=== PATIENT | female | born 1930 | race Caucasian/White ===

== ENCOUNTER → 2016-03-20 | Outpatient (CLI) | payer MEDICARE, BC ==
[~2016-03-20] MED LIST: ALPR-138 PO; ALPR.25 PO; AMBI10TA PO; ASPI1TAB69 PO; ASPI81TA82 PO; DOXE50CA3 PO; FEXO15TA PO; HYDR-3533 PO; LEVO50TA4 PO; MAXZ25 PO; PREM.625 PO; PREM0.622 PO; PROP60CA PO; PROP80CA PO; TRIA37.5 PO; VITA2000 PO; ZOFR4TAB3 SL; ZOLP10TA3 PO
[2016-03-20 11:03] LABS: HEMATOCRIT 37.6 % (35.0-46.0); MEAN CELL VOLUME 85.9 FL (80.0-100.0); MEAN CORPUSCULAR HEMOGLOBIN 29.2 PG (27.0-34.0); PLATELET COUNT 257 TH/MM3 (150-450); RED BLOOD COUNT 4.38 MIL/MM3 (4.00-5.30); RED CELL DISTRIBUTION WIDTH 13.8 % (11.6-17.2); REVIEW FLAG FINAL; WHITE BLOOD COUNT 4.7 TH/MM3 (4.0-11.0)
[2016-03-20 11:29] LABS: ANION GAP 7 MEQ/L (5-15); AST (GOT) 15 U/L (15-37); BICARBONATE 27.9 MEQ/L (21.0-32.0); BLOOD UREA NITROGEN 11 MG/DL (7-18); CHLORIDE 99 MEQ/L (98-107); GLOMERULAR FILTRATION RATE 64 ML/MIN (>89); GLUCOSE,FASTING 86 MG/DL (74-99); POTASSIUM 4.2 MEQ/L (3.5-5.1); SODIUM (NA) 134 MEQ/L (136-145)
[2016-03-20 11:39] LABS: ALKALINE PHOSPHATASE 103 U/L (45-117); ALT (GPT) 19 U/L (10-53); TOTAL BILIRUBIN ADULT 0.3 MG/DL (0.2-1.0)
== END ==
LOC: PLAB 08:18
PROVIDERS: ATTEND Family Medicine
DX: I10 Essential (primary) hypertension (principal); E03.8 Other specified hypothyroidism; E89.89 Other postprocedural endocrine and metabolic complications and disorders; Z51.81 Encounter for therapeutic drug level monitoring
CPT/HCPCS: 36415; 80053; 84443; 85027

== ENCOUNTER 2016-04-02 20:10 | Emergency (ER) | payer MEDICARE, BC ==
[~2016-04-02] VITALS: Ht 160 cm; Wt 64.8 kg
[~2016-04-02 20:10] MED LIST changes: -ALPR.25 PO; -AMBI10TA PO; -ASPI1TAB69 PO; -FEXO15TA PO; -HYDR-3533 PO; -PREM.625 PO; -PROP60CA PO; -TRIA37.5 PO; -VITA2000 PO; -ZOFR4TAB3 SL
[2016-04-02 20:21] VITALS: BP 145/81; PULSE 76; RESP 18; TEMP 97.6; O2SAT 98
[2016-04-02] MEDS ORDERED: ASPI1TAB69 PO (21:01)
[2016-04-02] MEDS ORDERED: FEXO15TA PO (21:01)
[2016-04-02] MEDS ORDERED: LEVO50TA4 PO (21:01)
[2016-04-02] MEDS ORDERED: PREM.625 PO (21:01)
[2016-04-02] MEDS ORDERED: DOXE50CA3 PO (21:01)
[2016-04-02] MEDS ORDERED: PROP60CA PO (21:01)
[2016-04-02] MEDS ORDERED: AMBI10TA PO (21:01)
[2016-04-02] MEDS ORDERED: TRIA37.5 PO (21:01)
[2016-04-02] MEDS ORDERED: ALPR.25 PO (21:01)
[2016-04-02] MEDS ORDERED: VITA2000 PO (21:01)
--- NOTE | 2016-04-02 21:54 | RADHPO ---
EXAM DATE/TIME: 04/02/2016 21:09 [facility] COMPARISON: No previous studies available for comparison. INDICATIONS : Patient states she fell tonight, pain. MEDICAL HISTORY : None. SURGICAL HISTORY : None. ENCOUNTER: Initial ACUITY: 1 day PAIN SCORE: 7/10 LOCATION: Left Shoulder FINDINGS: Left glenohumeral joint is anteriorly dislocated. Probably some flattening of the posterolateral aspe ct of the humeral head. No displaced fracture seen. 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 CONCLUSION: Anterior dislocation of the glenohumeral joint and a probable shallow Hill-Sachs lesion. No displaced fracture seen. Favio Schuster MD on April 02, 2016 at 21:52 Board Certified Radiologist. This report was verified electronically.
--- NOTE | 2016-04-02 22:16 | PD ---
HPI Chief Complaint: Fall Time Seen by Provider: 22:16 Travel History International Travel<30 days: No Contact w/Intl Traveler<30days: No Traveled to known affect area: No History of Present Illness HPI 86-year-old female presents to the emergency department for evaluation of left shoulder pain status post a non-syncopal trip and fall. Patient was out in the garage and had a trip and fall injuring her left shoulder. Patient denies any left upper extremity numbness tingling or weakness but arredondo significant pain with attempted movement. No previous injury to the left shoulder. Has had previous injury to the right shoulder with a rotator cuff injury. Patient states she did hit her chin and does complain of some neck pain denies any loss of consciousness however. Patient does take aspirin daily but takes no other blood thinning agents. Patient denies any chest pain rib pain abdominal pain pelvic pain back pain or other extremity injury or pain. Patient denies any lower extremity pain or injury. Patient has ice pack to the left shoulder. Patient rates pain 10 over 10 in intensity. Applying ice are remaining still provided some relief attempted movement worsens symptoms. Takes aspirin daily as only blood thinning agent. PFSH Past Medical History Narrative Medical Anxiety hypertension right rotator cuff injury cholecystectomy herniorrhaphy hysterectomy Blood Disorders: No Anxiety: Yes Cancer: No Cardiovascular Problems: No Diabetes: No Endocrine: No Genitourinary: No Hepatitis: No Hiatal Hernia: No Hypertension: Yes Immune Disorder: No Musculoskeletal: Yes (BACK PAIN HX - ARTHRITIS) Neurologic: Yes Psychiatric: Yes (ANXIETY) Reproductive: No Respiratory: No Thyroid Disease: Yes Tetanus Vaccination: < 5 Years Influenza Vaccination: Yes Past Surgical History Abdominal Surgery: Yes (ROSS, HERNIA REPAIRS X2) AICD: No Body Medical Devices: EYES Eye Surgery: Yes (ALEXIA CATARACT SX) Gynecologic Surgery: Yes (HYSTERECTOMY ) Hysterectomy: Yes Joint Replacement: No Oral Surgery: Yes (T&A) Pacemaker: No Other Surgery: Yes (hysterectomy, gall bladder, hernia repair) Social History Alcohol Use: No Tobacco Use: No Substance Use: No Allergies-Medications (Allergen,Severity, Reaction): Coded Allergies: [place] (Unverified Allergy, Mild, HIVES, 04/02/16) [place] (Unverified Adverse Reaction, Mild, HIVES, 04/02/16) Tomato (Unverified Adverse Reaction, Mild, HIVES, 04/02/16) Reported Meds & Prescriptions Reported Meds & Active Scripts Active Zofran Odt (Ondansetron Odt) 4 Mg Tab 4 Mg SL Q6HR PRN Lortab (Hydrocodone-Acetaminophen) 5-325 Mg Tab 0.5-1 Tab PO Q6H PRN Reported Vitamin D3 (Cholecalciferol) 2,000 Unit Cap 2,000 Units PO DAILY Ambien (Zolpidem Tartrate) 10 Mg Tab 10 Mg PO HS PRN Propranolol ER 24 HR (Propranolol HCl) 60 Mg Cap 50 Mg PO DAILY Doxepin (Doxepin HCl) 50 Mg Cap 50 Mg PO HS Aspirin 81 Mg Tabdr 81 Mg PO DAILY Fabienne Allergy (Fexofenadine HCl) 180 Mg Tab 180 Mg PO DAILY Xanax (Alprazolam) 0.25 Mg Tab 0.25 Mg PO Q8H PRN Prempro Blister Pack (Estrogens Conj/Medroxyprogest Acet) 0.625-2.5 Mg Tab 1 Tab PO EVERY OTHER DAY Triamterene-Hydrochlorothiazide 37.5-25 Mg Tab 1 Tab PO DAILY Levothyroxine (Levothyroxine Sodium) 50 Mcg Tab 50 Mcg PO DAILY Review of Systems Except as stated in HPI: all other systems reviewed are Neg General / Constitutional: No: Fever, Chills Eyes: No: Visual changes HENT: Positive: Neck Pain, No: Headaches Cardiovascular: No: Chest Pain or Discomfort, Syncope Respiratory: No: Shortness of Breath, Pleuritic Pain Gastrointestinal: No: Nausea, Vomiting, Abdominal Pain Genitourinary: No: Flank Pain Musculoskeletal: Positive: Limited ROM, Pain (left shoulder) Skin: No Rash Neurologic: No: Weakness, Headache, Change in Mentation, Slurred Speech Psychiatric: No: Anxiety Endocrine: No: Heat Intolerance Hematologic/Lymphatic: No: Easy Bruising Physical Exam Narrative GENERAL: Well-developed well-nourished female in no respiratory distress obvious discomfort holding her left upper extremity without obvious step-off deformity. GCS 15. SKIN: Warm and dry. HEAD: Atraumatic. Normocephalic. EYES: Pupils equal and round. No scleral icterus. No injection or drainage. ENT: No nasal bleeding or discharge. Mucous membranes pink and moist. NECK: Trachea midline. No JVD. Mild tenderness to direct palpation along the left side of the posterior neck no bony step-off no midline tenderness to direct palpation along the cervical spine. CARDIOVASCULAR: Regular rate and rhythm. RESPIRATORY: No accessory muscle use. Clear to auscultation. Breath sounds equal bilaterally. GASTROINTESTINAL: Abdomen soft, non-tender, nondistended. Hepatic and splenic margins not palpable. MUSCULOSKELETAL: Extremities without clubbing, cyanosis, or edema. Obvious deformity of the left shoulder with step-off noticed that the glenohumeral location distally extremity is neurovascular tendon intact with brisk capillary refill of each digit and thumb apposition in place wrist flexion extension of place sensory exam intact radial pulse 2+ to palpation. NEUROLOGICAL: Awake and alert. No obvious cranial nerve deficits. Motor grossly within normal limits. Five out of 5 muscle strength in the arms and legs. Normal speech. PSYCHIATRIC: Appropriate mood and affect; insight and judgment normal. Data Data Last Documented VS Vital Signs Date Time Temp Pulse Resp B/P Pulse Ox O2 Delivery O2 Flow Rate FiO2 04/03/16 00:55 82 18 129/58 99 04/03/16 00:50 Room Air 04/02/16 23:51 2 04/02/16 20:21 97.6 Orders Shoulder, Complete (>2vws) (04/02/16 20:24) Ice/Cold Pack (04/02/16 20:24) Propofol 200 Mg/20 Ml Inj (Diprivan 200 (04/02/16 22:30) Ct Brain W/O Iv Contrast(Rout) (04/02/16 ) Ct Cerv Spine W/O Contrast (04/02/16 ) Ondansetron Inj (Zofran Inj) (04/02/16 22:30) Morphine Inj (Morphine Inj) (04/02/16 22:30) Ice/Cold Pack (04/02/16 22:22) Support Splint (04/02/16 22:22) Shoulder, Limited(2vws) (04/02/16 ) Sling Cradle Arm (04/02/16 ) MDM Medical Decision Making Medical Screen Exam Complete: Yes Emergency Medical Condition: Yes Medical Record Reviewed: Yes Interpretation(s) Last Impressions Shoulder X-Ray 04/02/162023 Signed Impressions: Service Date/Time: Saturday, April 02, 2016 21:09 - CONCLUSION: Anterior dislocation of the glenohumeral joint and a probable shallow Hill-Sachs lesion. No displaced fracture seen. Favio Schuster MD Shoulder X-Ray 04/02/16 0000 Signed Impressions: Service Date/Time: Saturday, April 02, 2016 23:40 - CONCLUSION: Successful reduction. Favio Small MD Head CT 04/02/16 0000 Signed Impressions: Service Date/Time: Saturday, April 02, 2016 22:41 - CONCLUSION: 1. No acute abnormality. 2. Age-related atrophy. 3. Suspect small vessel ischemic change in the white matter. Favio Small MD Cervical Spine CT 04/02/16 0000 Signed Impressions: Service Date/Time: Saturday, April 02, 2016 22:41 - CONCLUSION: 1. No fracture or acute malalignment of the cervical spine. 2. Multilevel degenerative changes as above. 3. Large nodule of the right lobe of the thyroid. Outpatient thyroid ultrasound recommended. Faivo Schuster MD Differential Diagnosis Dislocation, subluxation, fracture Narrative Course Patient presents with dislocation of the left shoulder distally extremity is neurovascular tendon intact; complaint of fall with hitting her chin and complains of left-sided neck pain; CT brain noncontrast CT cervical spine noncontrast that imaging of the left shoulder imaging studies ordered Patient was administered Zofran 4 mg IV and morphine sulfate 2 mg IV Left shoulder shows dislocation of the left shoulder the glenohumeral joint with Hill-Sachs deformity noted CT brain and CT cervical spine revealed no acute abnormality After successful clinical reduction of the dislocation imaging studies study was consistent with successful reduction; patient stable for outpatient management. Procedures Procedure Narrative After written and verbal informed consent and following successful procedural sedation with propofol provided by colleague Patient was placed in optimum supine position and with humerus at the patient's side and abduction gentle external rotation was performed however initially had reduction of the dislocation but this slipped out very readily and then with gentle over the head range of motion humeral head popped into glenoid fossa and remain in good position. Patient was readily awakened and was able to perform director of student life 5 over 5 motor strength with brisk capillary refill less than 2 seconds per digit thumb apposition intact wrist flexion and extension intact history exam intact. Patient kept in sling and swath to maintain reduction. Postreduction film performed. Diagnosis Primary Impression: Anterior shoulder dislocation Qualified Code: S43.015A - Anterior shoulder dislocation, left, initial encounter Additional Impression: Cervical strain, acute Qualified Code: S16.1XXA - Cervical strain, acute, initial encounter Referrals: Orthopedist call for appointment Patient Instructions: Narcotic given in the ED, General Instructions Additional Instructions: Call orthopedist in a.m. to schedule follow-up appointment Wear sling and swath Apply ice pack intermittently for first 12-24 hours Take pain medication as prescribed as needed Return to the emergency department for any concerns or change in condition Med/Other Pt SpecificInfo: Prescription(s) given Scripts Ondansetron Odt (Zofran Odt)4 Mg Tab4 Mg SL Q6HR PRN (Nausea/Vomiting) #10 TAB Ref 0 Prov:Alexia aFulkner MD 04/03/16 Hydrocodone-Acetaminophen (Lortab)5-325 Mg Tab0.5-1 Tab PO Q6H PRN (PAIN) #12 TAB Ref 0 Prov:Alexia Faulkner MD 04/03/16 Disposition: 01 DISCHARGE HOME Condition: Stable Alexia Faulkner MD Apr 02, 2016 22:16
[2016-04-02] MEDS ORDERED: MORPHINE SULFATE 4 MG/ML INJ IV PUSH ONE (22:30)
[2016-04-02] MEDS ORDERED: PROPOFOL 200 MG/20 ML AMP IV ONE (22:30)
[2016-04-02] MEDS ORDERED: ONDANSETRON HCL 4 MG/2 ML VIAL IV PUSH ONE (22:30)
[2016-04-02 23:00] VITALS: BP 147/67; PULSE 81; RESP 20; O2SAT 100
--- NOTE | 2016-04-02 23:10 | RADHPO ---
EXAM DATE/TIME: 04/02/2016 22:41 [facility] COMPARISON: No previous studies available for comparison. INDICATIONS : Fall, cephalgia. RADIATION DOSE: 61.25 CTDIvol (mGy) MEDICAL HISTORY : Hypertension. SURGICAL HISTORY : None. ENCOUNTER: Initial ACUITY: 1 day PAIN SCALE: 4/10 LOCATION: cranial TECHNIQUE: Multiple contiguous axial images were obtained of the head. Using automated exposure control and adj ustment of the mA and/or kV according to patient size, radiation dose was kept as low as reasonably a chievable to obtain optimal diagnostic quality images. FINDINGS: CEREBRUM: The ventricles and cortical sulci are widened. There is decreased density in the periventricular whit e matter especially posteriorly. No evidence of midline shift, mass lesion, hemorrhage or acute infa rction. No extra-axial fluid collections are seen. POSTERIOR FOSSA: The cerebellum and brainstem are intact. The 4th ventricle is midline. The cerebellopontine angle i s unremarkable. EXTRACRANIAL: The visualized portion of the orbits is intact. SKULL: The calvaria is intact. No evidence of skull fracture. CONCLUSION: 1. No acute abnormality. 2. Age-related atrophy. 3. Suspect small vessel ischemic change in the white matter. Favio Smlal MD on April 02, 2016 at 23:05 Board Certified Radiologist. This report was verified electronically.
--- NOTE | 2016-04-02 23:14 | RADHPO ---
EXAM DATE/TIME: 04/02/2016 22:41 [facility] COMPARISON: No previous studies available for comparison. INDICATIONS : Fall, neck pain. RADIATION DOSE: 25.71 CTDIvol (mGy) MEDICAL HISTORY : Hypertension. SURGICAL HISTORY : None. ENCOUNTER: Initial ACUITY: 1 day PAIN SCALE: 4/10 LOCATION: neck TECHNIQUE: Volumetric scanning of the cervical spine was performed. Multiplanar reconstructions in the sagittal, coronal and oblique axial planes were performed. Using automated exposure control and adjustment o f the mA and/or kV according to patient size, radiation dose was kept as low as reasonably achievable to obtain optimal diagnostic quality images. FINDINGS: No fracture or acute-appearing malalignment seen of the cervical spine. A few millimeters of degenera tive appearing anterolisthesis seen at C3/C4. Vertebral bodies have normal height. There is moderate to severe disc space narrowing with uncovertebral and facet osteoarthritis and smal l, broad posterior disc osteophyte complexes at C4/C5, C5/C6 and C6/C7. Similar but milder changes ar e seen at C3/C4 except for facet osteoarthritis at C3/C4 is slightly worse. Juxtavertebral soft tissues are within normal limits. 16 x 24 mm nodule seen in the right lobe of the thyroid gland. CONCLUSION: 1. No fracture or acute malalignment of the cervical spine. 2. Multilevel degenerative changes as above. 3. Large nodule of the right lobe of the thyroid. Outpatient thyroid ultrasound recommended. Favio Schuster MD on April 02, 2016 at 23:10 Board Certified Radiologist. This report was verified electronically.
[2016-04-02 23:20] VITALS: O2SAT 99
--- NOTE | 2016-04-02 23:36 | PD ---
Physical Exam Narrative I was asked by my colleague Dr. Faulkner to perform procedural sedation for closed reduction of left shoulder dislocation. Data Data Last Documented VS Vital Signs Date Time Temp Pulse Resp B/P Pulse Ox O2 Delivery O2 Flow Rate FiO2 04/02/16 23:00 81 20 147/67 100 Nasal Cannula 2 04/02/16 20:21 97.6 Orders Shoulder, Complete (>2vws) (04/02/16 20:24) Ice/Cold Pack (04/02/16 20:24) Propofol 200 Mg/20 Ml Inj (Diprivan 200 (04/02/16 22:30) Ct Brain W/O Iv Contrast(Rout) (04/02/16 ) Ct Cerv Spine W/O Contrast (04/02/16 ) Ondansetron Inj (Zofran Inj) (04/02/16 22:30) Morphine Inj (Morphine Inj) (04/02/16 22:30) Ice/Cold Pack (04/02/16 22:22) Support Splint (04/02/16 22:22) Shoulder, Limited(2vws) (04/02/16 ) MDM Supervised Visit with EDIE: No Procedures Procedure Narrative Procedural sedation for closed reduction of left shoulder dislocation: After the risks and benefits were discussed the following procedure was performed: MODERATE SEDATION: The patient was placed on a phototypesetting equipment monitor and pulse oximetry. An ambu bag and suction was immediately available at bedside. The patient was monitored by the nurse. Oxygen saturation , heart rate and blood pressure were monitored. Procedural sedation was acheived using 70 mg of IV propofol. The patient was observed until awake and alert. Procedural Sedation time in attendance was 20 minutes. Branden Hidalgo MD Apr 02, 2016 23:36
[2016-04-02 23:51] VITALS: BP 143/67; PULSE 78; RESP 20; O2SAT 99
--- NOTE | 2016-04-03 00:19 | RADHPO ---
EXAM DATE/TIME: 04/02/2016 23:40 [facility] COMPARISON: SHOULDER LEFT COMPLETE (>2VWS), April 02, 2016, 21:09. INDICATIONS : Post reduction lt shoulder. MEDICAL HISTORY : Hypertension. SURGICAL HISTORY : None. ENCOUNTER: Subsequent ACUITY: 1 day PAIN SCORE: 7/10 LOCATION: Left shoulder FINDINGS: Two view examination of the left shoulder demonstrates no evidence of fracture or dislocation. The g lenohumeral and acromioclavicular joints are maintained. Bony mineralization is normal. CONCLUSION: Successful reduction. Favio Small MD on April 03, 2016 at 0:17 Board Certified Radiologist. This report was verified electronically.
[2016-04-03 00:25] VITALS: BP 131/58; PULSE 82; RESP 18; O2SAT 98
[2016-04-03] MEDS ORDERED: HYDR-3533 PO (00:38)
[2016-04-03] MEDS ORDERED: ZOFR4TAB3 SL (00:38)
[2016-04-03 00:50] VITALS: BP 137/69; PULSE 82; RESP 17; O2SAT 97
[2016-04-03 00:55] VITALS: BP 129/58
== END 2016-04-03 01:12 | disposition home or self-care (01) ==
LOC: PHED 20:10
DX: S43.085A Other dislocation of left shoulder joint, initial encounter (principal); R51 Headache; S16.1XXA Strain of muscle, fascia and tendon at neck level, initial encounter; E04.1 Nontoxic single thyroid nodule; I10 Essential (primary) hypertension; W01.0XXA Fall on same level from slipping, tripping and stumbling without subsequent striking against object, initial encounter; Y93.9 Activity, unspecified; Y92.008 Other place in unspecified non-institutional (private) residence as the place of occurrence of the external cause
CPT/HCPCS: 23650; 70450; 72125; 73030; 94770; 96374; 96375; 99156; 99284; J2270; J2405

== ENCOUNTER 2016-05-08 13:05 | Day surgery (SDC) | payer MEDICARE, BC ==
[~2016-05-08 13:05] MED LIST changes: -ALPR-138 PO; +ALPR.25 PO; +AMBI10TA PO; +ASPI1TAB69 PO; -ASPI81TA82 PO; +FEXO15TA PO; +HYDR-3533 PO; -MAXZ25 PO; +PREM.625 PO; -PREM0.622 PO; +PROP60CA PO; -PROP80CA PO; +TRIA37.5 PO; +VITA2000 PO; +ZOFR4TAB3 SL; -ZOLP10TA3 PO
[2016-05-08 13:24] VITALS: BP 126/68; PULSE 65; RESP 16; TEMP 98; O2SAT 97
[2016-05-08 14:20] VITALS: BP 146/65; PULSE 63; RESP 20; TEMP 98.4; O2SAT 94
[2016-05-08] MEDS ORDERED: LIDOCAINE HCL 1% PF 30 ML VIAL ONE (15:29)
[2016-05-08] MEDS ORDERED: SODIUM BICARBONATE 8.4% INJ 50 ML ONE (15:29)
--- NOTE | 2016-05-08 16:12 | RADRPT ---
EXAM DATE/TIME: 05/08/2016 13:35 [facility] COMPARISON: No previous studies available for comparison. INDICATIONS : Right thyroid nodule. MEDICAL HISTORY : Hypertension. Arthritis. SURGICAL HISTORY : Hysterectomy. Cholecystectomy. Hernia repair. ENCOUNTER: Initial ACUITY: 1 day PAIN SCORE: 0/10 LOCATION: Right neck ORGAN: Right thyroid lobe SPECIMENS: Three fine needle aspirate(s) submitted for pathologic evaluation. DEVICE: 22 gauge needle Post procedure scanning reveals no hematoma or other complication. The possibility does exist that the tissue obtained will be non-diagnostic. If the sample is non-claribel gnostic a repeat biopsy or surgical biopsy may need to be performed. TECHNIQUE: 1. Ultrasound guidance for needle biopsy. 2. Needle biopsy. The risks, benefits, and alternatives to ultrasound guided needle biopsy were explained to the patien t in detail including the risk of bleeding and infection. Written and verbal informed consent was ob tained. With the patient on the ultrasound table, images were obtained. Overlying skin was prepped and drape d in the usual sterile fashion and Lidocaine was utilized as a local anesthetic. A needle was advanced into the identified target and the number of specimens as above obtained and bernard bmitted for pathologic evaluation. The patient tolerated the procedure well and left the ultrasound suite in stable condition. CONCLUSION: Uncomplicated ultrasound guided needle biopsy. Evangelist Thomas MD on May 08, 2016 at 16:10 Board Certified Radiologist. This report was verified electronically.
== END 2016-05-08 14:30 | disposition home or self-care (01) ==
LOC: HRAD 13:05 → HRIP 13:08 → HRAD 14:30
PROVIDERS: ATTEND Family Medicine
DX: E04.1 Nontoxic single thyroid nodule (principal); I10 Essential (primary) hypertension; M19.90 Unspecified osteoarthritis, unspecified site; Z90.710 Acquired absence of both cervix and uterus
CPT/HCPCS: 10022; 76942; 88172; 88173

== ENCOUNTER → 2016-08-07 | Outpatient (CLI) | payer MEDICARE, BC ==
[2016-08-07 13:40] LABS: BACTERIA, URINE FEW /hpf; BLOOD, URINE NEG (NEG); GLUCOSE,URINE NEG (NEG); KETONE, URINE NEG (NEG); NITRITE,URINE NEG (NEG); PH, URINE 7.5 (5.0-8.5); SQUAMOUS EPITHELIAL CELL URINE 6 /hpf (0-5); URINE COLOR LIGHT-YELLOW (YELLW/STRAW)
[2016-08-07 13:43] LABS: ALT (GPT) 21 U/L (10-53); ANION GAP 8 MEQ/L (5-15); AST (GOT) 17 U/L (15-37); BICARBONATE 28.5 MEQ/L (21.0-32.0); BLOOD UREA NITROGEN 9 MG/DL (7-18); CHLORIDE 98 MEQ/L (98-107); GLOMERULAR FILTRATION RATE 82 ML/MIN (>89); POTASSIUM 3.5 MEQ/L (3.5-5.1); SODIUM (NA) 134 MEQ/L (136-145)
[2016-08-07 13:58] LABS: ALKALINE PHOSPHATASE 105 U/L (45-117); GLUCOSE,FASTING 79 MG/DL (74-99); TOTAL BILIRUBIN ADULT 0.3 MG/DL (0.2-1.0)
== END ==
LOC: PLAB 08:58
PROVIDERS: ATTEND Family Medicine
DX: E03.9 Hypothyroidism, unspecified (principal); I10 Essential (primary) hypertension
CPT/HCPCS: 36415; 80053; 81001; 84443

== ENCOUNTER → 2016-09-28 | Outpatient (CLI) | payer MEDICARE, BC ==
[2016-09-28 11:03] LABS: AUTOMATED NEUTROPHIL # 2.9 TH/MM3 (1.8-7.7); BASOPHIL % 0.7 % (0.0-2.0); EOSINOPHIL # 0.1 TH/MM3 (0-0.4); EOSINOPHIL % 2.3 % (0.0-4.0); HEMATOCRIT 35.7 % (35.0-46.0); HEMO FLAGS DIFF FINAL; LYMPH % 19.8 % (9.0-44.0); LYMPHOCYTE # 0.9 TH/MM3 (1.0-4.8); MEAN CELL VOLUME 86.9 FL (80.0-100.0); MEAN CORPUSCULAR HEMOGLOBIN 30.1 PG (27.0-34.0); MEAN CORPUSCULAR HGB CONC 34.7 % (32.0-36.0); MONO % 10.4 % (0.0-8.0); NEUT % 66.8 % (16.0-70.0); PLATELET COUNT 268 TH/MM3 (150-450); RED BLOOD COUNT 4.11 MIL/MM3 (4.00-5.30); RED CELL DISTRIBUTION WIDTH 12.8 % (11.6-17.2); WHITE BLOOD COUNT 4.3 TH/MM3 (4.0-11.0)
[2016-09-28 11:05] LABS: BACTERIA, URINE OCC /hpf; BLOOD, URINE NEG (NEG); GLUCOSE,URINE NEG (NEG); KETONE, URINE NEG (NEG); NITRITE,URINE NEG (NEG); SQUAMOUS EPITHELIAL CELL URINE 15 /hpf (0-5); URINE COLOR YELLOW (YELLW/STRAW)
[2016-09-28 11:20] LABS: ANION GAP 9 MEQ/L (5-15); AST (GOT) 15 U/L (15-37); BICARBONATE 29.2 MEQ/L (21.0-32.0); BLOOD UREA NITROGEN 11 MG/DL (7-18); CHLORIDE 98 MEQ/L (98-107); GLOMERULAR FILTRATION RATE 61 ML/MIN (>89); GLUCOSE,FASTING 86 MG/DL (74-99); POTASSIUM 4.2 MEQ/L (3.5-5.1); SODIUM (NA) 136 MEQ/L (136-145)
[2016-09-28 11:30] LABS: ALKALINE PHOSPHATASE 101 U/L (45-117); ALT (GPT) 15 U/L (10-53); TOTAL BILIRUBIN ADULT 0.4 MG/DL (0.2-1.0)
== END ==
LOC: PLAB 08:18
PROVIDERS: ATTEND Family Medicine
DX: E03.9 Hypothyroidism, unspecified (principal); I10 Essential (primary) hypertension
CPT/HCPCS: 36415; 80053; 81001; 84443; 85025

== ENCOUNTER → 2016-12-12 | Outpatient (CLI) | payer MEDICARE, BC ==
[2016-12-12 13:48] LABS: BACTERIA, URINE OCC /hpf; BILIRUBIN, URINE NEG (NEG); BLOOD, URINE SMALL (NEG); GLUCOSE,URINE NEG (NEG); KETONE, URINE NEG (NEG); NITRITE,URINE NEG (NEG); PH, URINE 6.5 (5.0-8.5); SQUAMOUS EPITHELIAL CELL URINE 4 /hpf (0-5); URINE COLOR LIGHT-YELLOW (YELLW/STRAW); URINE LEUKOCYTE ESTERASE LARGE (NEG); WHITE BLOOD CELL CLUMPS MANY
== END ==
LOC: PLAB 10:11
PROVIDERS: ATTEND Family Medicine
DX: R39.9 Unspecified symptoms and signs involving the genitourinary system (principal); N39.0 Urinary tract infection, site not specified; B96.20 Unspecified Escherichia coli [E. coli] as the cause of diseases classified elsewhere
CPT/HCPCS: 81001; 87077; 87086; 87186

== ENCOUNTER → 2017-02-20 | Outpatient (CLI) | payer MEDICARE, BC ==
[2017-02-20 13:21] LABS: AUTOMATED NEUTROPHIL # 3.6 TH/MM3 (1.8-7.7); BASOPHIL % 0.6 % (0.0-2.0); HEMATOCRIT 36.7 % (35.0-46.0); HEMOGLOBIN 12.5 GM/DL (11.6-15.3); LYMPH % 15.3 % (9.0-44.0); LYMPHOCYTE # 0.8 TH/MM3 (1.0-4.8); MEAN CELL VOLUME 86.9 FL (80.0-100.0); MEAN CORPUSCULAR HEMOGLOBIN 29.5 PG (27.0-34.0); MEAN CORPUSCULAR HGB CONC 33.9 % (32.0-36.0); MEAN PLATELET VOLUME 8.2 FL (7.0-11.0); MONO % 10.5 % (0.0-8.0); MONOCYTE # 0.5 TH/MM3 (0-0.9); NEUT % 72.6 % (16.0-70.0); PLATELET COUNT 290 TH/MM3 (150-450); RED BLOOD COUNT 4.23 MIL/MM3 (4.00-5.30); RED CELL DISTRIBUTION WIDTH 13.6 % (11.6-17.2)
[2017-02-20 13:29] LABS: BACTERIA, URINE OCC /hpf; BILIRUBIN, URINE NEG (NEG); BLOOD, URINE NEG (NEG); GLUCOSE,URINE NEG (NEG); KETONE, URINE NEG (NEG); MUCUS URINE FEW /lpf (OCC); NITRITE,URINE NEG (NEG); PH, URINE 6.5 (5.0-8.5); SQUAMOUS EPITHELIAL CELL URINE 2 /hpf (0-5); URINE COLOR YELLOW (YELLW/STRAW); URINE LEUKOCYTE ESTERASE TRACE (NEG)
[2017-02-20 13:48] LABS: ALBUMIN 3.7 GM/DL (3.4-5.0); ALT (GPT) 20 U/L (10-53); AMYLASE 45 U/L (25-115); AST (GOT) 16 U/L (15-37); BICARBONATE 24.4 MEQ/L (21.0-32.0); BLOOD UREA NITROGEN 13 MG/DL (7-18); CALCIUM 9.1 MG/DL (8.5-10.1); CHLORIDE 97 MEQ/L (98-107); CREATININE 0.86 MG/DL (0.50-1.00); GLOMERULAR FILTRATION RATE 63 ML/MIN (>89); GLUCOSE,FASTING 87 MG/DL (74-99); LIPASE 107 U/L (73-393); SODIUM (NA) 132 MEQ/L (136-145)
[2017-02-20 13:51] LABS: ALKALINE PHOSPHATASE 107 U/L (45-117); TOTAL BILIRUBIN ADULT 0.4 MG/DL (0.2-1.0); TOTAL PROTEIN 7.2 GM/DL (6.4-8.2)
== END ==
LOC: PLAB 09:46
PROVIDERS: ATTEND Family Medicine
DX: R10.9 Unspecified abdominal pain (principal)
CPT/HCPCS: 36415; 80053; 81001; 82150; 83690; 85025

== ENCOUNTER → 2017-03-06 | Outpatient (CLI) | payer MEDICARE, BC ==
[~2017-03-06] MED LIST changes: +ASPI81TA23 PO; +COQ-50CA2 PO; +POTA10CA PO
[2017-03-06 13:19] LABS: AUTOMATED NEUTROPHIL # 2.9 TH/MM3 (1.8-7.7); BASOPHIL % 0.8 % (0.0-2.0); EOSINOPHIL # 0.1 TH/MM3 (0-0.4); EOSINOPHIL % 2.3 % (0.0-4.0); HEMATOCRIT 36.3 % (35.0-46.0); HEMOGLOBIN 12.5 GM/DL (11.6-15.3); LYMPH % 16.8 % (9.0-44.0); LYMPHOCYTE # 0.7 TH/MM3 (1.0-4.8); MEAN CELL VOLUME 85.1 FL (80.0-100.0); MEAN CORPUSCULAR HEMOGLOBIN 29.4 PG (27.0-34.0); MEAN CORPUSCULAR HGB CONC 34.5 % (32.0-36.0); MONO % 12.5 % (0.0-8.0); MONOCYTE # 0.5 TH/MM3 (0-0.9); NEUT % 67.6 % (16.0-70.0); PLATELET COUNT 262 TH/MM3 (150-450); RED BLOOD COUNT 4.26 MIL/MM3 (4.00-5.30); RED CELL DISTRIBUTION WIDTH 13.7 % (11.6-17.2); WHITE BLOOD COUNT 4.3 TH/MM3 (4.0-11.0)
[2017-03-06 13:21] LABS: ALBUMIN 3.5 GM/DL (3.4-5.0); AMYLASE 41 U/L (25-115); BICARBONATE 27.1 MEQ/L (21.0-32.0); BLOOD UREA NITROGEN 6 MG/DL (7-18); CALCIUM 8.9 MG/DL (8.5-10.1); CHLORIDE 98 MEQ/L (98-107); CREATININE 0.77 MG/DL (0.50-1.00); GLOMERULAR FILTRATION RATE 71 ML/MIN (>89); GLUCOSE,FASTING 89 MG/DL (74-99); LIPASE 96 U/L (73-393); SODIUM (NA) 133 MEQ/L (136-145)
[2017-03-06 13:23] LABS: AST (GOT) 18 U/L (15-37)
[2017-03-06 13:26] LABS: ALKALINE PHOSPHATASE 98 U/L (45-117); ALT (GPT) 22 U/L (10-53); TOTAL BILIRUBIN ADULT 0.4 MG/DL (0.2-1.0); TOTAL PROTEIN 6.7 GM/DL (6.4-8.2)
[2017-03-06 14:12] LABS: BACTERIA, URINE MOD /hpf; BILIRUBIN, URINE NEG (NEG); BLOOD, URINE NEG (NEG); GLUCOSE,URINE NEG (NEG); KETONE, URINE NEG (NEG); MUCUS URINE FEW /lpf (OCC); NITRITE,URINE NEG (NEG); SQUAMOUS EPITHELIAL CELL URINE 16 /hpf (0-5); URINE COLOR LIGHT-YELLOW (YELLW/STRAW); URINE LEUKOCYTE ESTERASE NEG (NEG)
== END ==
LOC: PLAB 08:50
PROVIDERS: ATTEND Family Medicine
DX: R10.9 Unspecified abdominal pain (principal)
CPT/HCPCS: 36415; 80053; 81001; 82150; 83690; 85025

== ENCOUNTER 2017-03-11 17:17 | Emergency (ER) | payer MEDICARE, BC ==
[~2017-03-11] VITALS: Ht 160 cm; Wt 62.5 kg
[~2017-03-11 17:17] MED LIST changes: -ASPI81TA23 PO; -COQ-50CA2 PO; -POTA10CA PO
[2017-03-11 17:27] VITALS: BP 177/77; PULSE 104; RESP 16; TEMP 97.4; O2SAT 98
[2017-03-11] MEDS ORDERED: ASPI81TA23 PO (19:03)
[2017-03-11] MEDS ORDERED: COQ-50CA2 PO (19:06)
[2017-03-11] MEDS ORDERED: POTA10CA PO (19:06)
[2017-03-11 19:07] VITALS: BP 165/79; PULSE 96; RESP 18; O2SAT 97
--- NOTE | 2017-03-11 19:22 | PD ---
HPI Chief Complaint: Hypertension Time Seen by Provider: 19:06 Travel History International Travel<30 days: No Contact w/Intl Traveler<30days: No Traveled to known affect area: No History of Present Illness HPI An 87-year-old female with a history of hypertension who complains of a gradual onset of a midline frontal parietal headache today. Her pressure was slightly elevated. She called Dr. Coats and was told to go the emergency department. The patient waited in the emergency department waiting room for about an hour and a half and her blood pressure came down to 165/79. The headache is totally gone. Her son gave her some Tylenol sinus medication and this may have helped the headache. She denies any nasal discharge and does not have any pain over her sinuses. She denies any fever. PFSH Past Medical History Blood Disorders: No Anxiety: Yes Cancer: No Cardiovascular Problems: No High Cholesterol: Yes Diabetes: No Endocrine: No Genitourinary: No Hepatitis: No Hiatal Hernia: No Hypertension: Yes Immune Disorder: No Medical other: No Musculoskeletal: Yes (BACK PAIN HX - ARTHRITIS) Neurologic: Yes Reproductive: No Respiratory: No Thyroid Disease: Yes Tetanus Vaccination: Unknown Influenza Vaccination: No ?: Not Menopausal: Yes Past Surgical History Abdominal Surgery: Yes (ROSS, bilat -HERNIA REPAIRS) AICD: No Body Medical Devices: EYES Cholecystectomy: Yes Eye Surgery: Yes (ALEXIA CATARACT SX) Gynecologic Surgery: Yes (HYSTERECTOMY ) Hysterectomy: Yes Joint Replacement: No Oral Surgery: Yes (T&A) Pacemaker: No Tonsillectomy: Yes Other Surgery: Yes (hysterectomy, gall bladder, hernia repair) Social History Alcohol Use: No Tobacco Use: No Substance Use: No Allergies-Medications (Allergen,Severity, Reaction): Coded Allergies: orange (Unverified Allergy, Mild, HIVES, 03/11/17) strawberry (Unverified Adverse Reaction, Mild, HIVES, 03/11/17) tomato (Unverified Adverse Reaction, Mild, HIVES, 03/11/17) Reported Meds & Prescriptions Reported Meds & Active Scripts Active Reported Potassium Chloride ER (Potassium Chloride) 10 Meq Cap 10 Meq PO DAILY Coq-10 (Coenzyme Q10 (Ubidecarenone)) 50 Mg Cap 100 Mg PO DAILY Aspirin EC (Aspirin) 81 Mg Tabdr 81 Mg PO DAILY Vitamin D3 (Cholecalciferol) 2,000 Unit Cap 2,000 Units PO DAILY Ambien (Zolpidem Tartrate) 10 Mg Tab 10 Mg PO HS PRN Propranolol ER 24 HR (Propranolol HCl) 60 Mg Cap 80 Mg PO DAILY Doxepin (Doxepin HCl) 50 Mg Cap 50 Mg PO HS Fabienne Allergy (Fexofenadine HCl) 180 Mg Tab 180 Mg PO DAILY Xanax (Alprazolam) 0.25 Mg Tab 0.25 Mg PO Q8H PRN Triamterene-Hydrochlorothiazide 37.5-25 Mg Tab 1 Tab PO DAILY Levothyroxine (Levothyroxine Sodium) 50 Mcg Tab 50 Mcg PO DAILY Review of Systems Except as stated in HPI: all other systems reviewed are Neg Physical Exam Narrative GENERAL: Well-nourished, well-developed patient in no apparent distress. Her vital signs show blood pressure 165/79 and 1 I checked the heart rate is in the mid 80s. The rest of the vital signs are also normal. SKIN: Focused skin assessment warm/dry. HEAD: Normocephalic. No sinus tenderness is present. EYES: No scleral icterus. No injection or drainage. NECK: Supple, trachea midline. No JVD or lymphadenopathy. There is no meningismus. CARDIOVASCULAR: Regular rate and rhythm without murmurs, gallops, or rubs. RESPIRATORY: Breath sounds equal bilaterally. No accessory muscle use. GASTROINTESTINAL: Abdomen soft, non-tender, nondistended. MUSCULOSKELETAL: No cyanosis, or edema. BACK: Nontender without obvious deformity. No CVA tenderness. NEUROLOGICAL: Awake and alert. Cranial nerves II through XII intact. Motor and sensory grossly within normal limits. Five out of 5 muscle strength in all muscle groups. Normal speech. Data Data Last Documented VS Vital Signs Date Time Temp Pulse Resp B/P (MAP) Pulse Ox O2 Delivery O2 Flow Rate FiO2 03/11/17 19:07 96 18 165/79 (107) 97 Room Air 03/11/17 17:27 97.4 MDM Medical Decision Making Medical Screen Exam Complete: Yes Emergency Medical Condition: Yes Medical Record Reviewed: Yes Differential Diagnosis Hypertensive headache, sinus headache, hypertensive urgency, anxiety related blood pressure elevation, elevated blood pressure reading Narrative Course The patient may have had a hypertensive headache that has resolved. Her pressure was not extremely high at home. The headache is resolved now. Impression: Hypertensive headache, elevated blood pressure reading Diagnosis Primary Impression: Headache Additional Impression: Elevated blood pressure reading Additional Instructions: Follow-up with Dr. Byers, hopefully this week. I trust the readings in his office more than the blood pressure readings in the emergency department because they are less likely to be affected by anxiety of coming into the emergency department. Try plain Tylenol for the headache pain, the Tylenol Sinus as a decongestant which may elevate your blood pressure. Disposition: 01 DISCHARGE HOME Condition: Stable Kuldip Hamilton MD Mar 11, 2017 19:22
[2017-03-11 19:35] VITALS: BP 139/64; PULSE 81; RESP 16; O2SAT 98
== END 2017-03-11 19:48 | disposition home or self-care (01) ==
LOC: PHED 17:17
DX: R51 Headache (principal); I10 Essential (primary) hypertension; F41.9 Anxiety disorder, unspecified; E78.00 Pure hypercholesterolemia, unspecified; M19.90 Unspecified osteoarthritis, unspecified site; Z90.49 Acquired absence of other specified parts of digestive tract; Z79.82 Long term (current) use of aspirin; Z79.899 Other long term (current) drug therapy
CPT/HCPCS: 99282